=== PATIENT | male | born 1970 | race Caucasian/White ===

== ENCOUNTER 2024-05-02 03:34 | Emergency (ER) | payer OTHER ==
[2024-05-02 04:00] LABS: Hematocrit 46.3 % (42.0-52.0); Hemoglobin 15.3 g/dL (14.0-18.0); Mean Corpuscular HGB CONC 32.9 g/dL (32.0-36.0); Mean Corpuscular Hemoglobin 28.9 pg (27.0-31.0); Mean Corpuscular Volume 87.8 fl (78.0-98.0); Mean Platelet Volume 7.7 fL (7.4-10.4); Platelet Count 261 10x3/uL (130-400); RBC Distribution Width 11.9 % (11.5-14.5); Red Blood Cell (RBC) Count 5.27 mill/uL (4.70-6.10)
[2024-05-02 04:05] LABS: Eosinophils 1 % (0-10); Lymphocytes 10 % (21-51); MDiff Complete? YES; Monocytes 6 % (0-10); Neutrophil 83 % (42-75)
[2024-05-02 04:18] LABS: Acetaminophen Less than 10 mcg/mL (Less than 10); Alcohol Less than 10.0 mg/dL (Less than 10); Lipase 28 U/L (8-78); Salicylate Less than 8.0 mg/dL (Less than 8.0)
[2024-05-02] MEDS ORDERED: Sodium Chloride 0.9% 1,000 ML ONE ×2 (04:19→05:44)
[2024-05-02 04:20] LABS: Troponin I Less than 0.010 ng/mL (< 0.028)
[2024-05-02 04:21] LABS: ALT (SGPT) 57 U/L (Less than 45); AST (SGOT) 33 U/L (11-34); Alkaline Phosphatase 64 U/L (40-110); Anion Gap 16 mmol/L (10-20); BUN (Urea Nitrogen) 15 mg/dL (8.4-25.7); Bilirubin, Total 0.6 mg/dL (0.3-1.2); CK (CPK) 147 U/L (30-200); Calc. Creatinine Clearance 0 mL/min (70-130); Calcium 9.3 mg/dL (7.8-10.44); Carbon Dioxide 19 mmol/L (22-29); Chloride 107 mmol/L (98-107); Estimated GFR 93; Globulin 3.1 g/dL (2.4-3.5); Glucose 126 mg/dL (70-105); Protein, Total 7.1 g/dL (6.0-8.3); Sodium 138 mmol/L (136-145)
[2024-05-02 04:23] LABS: INR-International Normal Ratio 0.9; Prothrombin Time 12.5 sec (12.0-14.7)
[2024-05-02 04:28] LABS: Base Excess-Venous 0.3 mmol/L (-2.0 to 3.0); CO2 Tension (PvCO2) 39.8 mmHg (42.0-51.0); Calcium, Ionized 1.21 mmol/L (1.15-1.33); Chloride 106 mmol/L (98-107); Potassium 3.9 mmol/L (3.5-5.1); Sodium 141 mmol/L (138-145); T. Carbon Dioxide 26.3 mmol/L (22.0-28.0); vO2 Saturation-calc 99.4 % (60.0-85.0)
[2024-05-02 05:00] LABS: Bilirubin Small (Negative); Blood, Urine Negative (Negative); CAUTI Indications for Culture Alt mental st,lethar; Clarity Clear (Clear); Glucose, Urine (Dipstick) Negative (Negative); Ketone, Urine Trace mg/dL (Negative); Leukocyte Negative (Negative); Mucous/LPF 2+ LPF (<2+); Nitrite Negative (Negative); Protein, Urine (Dipstick) 100 mg/dL (Neg-Trace); RBC/HPF None Seen HPF (0-3); Specific Gravity, Urine 1.025 (1.002-1.036); Squamous Epithelial 0-3 HPF (0-3); WBC/HPF 0-3 HPF (0-3)
[2024-05-02 05:01] LABS: Urine Culture Reflex No No
[2024-05-02 05:14] LABS: Amphetamine Not Detected (NotDetected); Barbiturates Screen Not Detected (NotDetected); Benzodiazepine Screen Not Detected (NotDetected); Cocaine Metabolite Screen Not Detected (NotDetected); Methadone Not Detected (NotDetected); Methamphetamine Not Detected (NotDetected); Opiate Screen Not Detected (NotDetected); Oxycodone Screen Not Detected (NotDetected); Phencyclidine (PCP) Not Detected (NotDetected); THC/Cannabinoid Screen Not Detected (NotDetected); Tricyclic Screen Detected (NotDetected)
== END 2024-05-02 08:33 ==
LOC: MADERS 03:34 → EEVIPCON 03:34 → MADERS 08:33
DX: R41.82 Altered mental status, unspecified (principal); F17.210 Nicotine dependence, cigarettes, uncomplicated
CPT/HCPCS: 36415; 57010; 70450; 71045; 80306; 80307; 81001; 82330; 82550; 82803; 83605; 83690; 84443; 85610; 93005; 94760; 96360; 96361; J7030